=== PATIENT | male | born 1995 | race Caucasian/White ===

== ENCOUNTER 2018-10-19 16:16 | Emergency (ER) | payer MEDICAID ==
[2018-10-19] MEDS ORDERED: LET GEL TOPICAL 1 EA SYR TP ONE (17:16)
--- NOTE | 2018-10-19 17:26 | EDPHY ---
General Time Seen by Provider: 10/19/18 16:59 Narrative: CLINICAL IMPRESSION: Blisters to Feet, Diarrhea, illicit drug abuse ASSESSMENT/PLAN: 23 yo homeless male with a hx of meth abuse presents to the ED with blisters to his heels from walking around town with poor footwear. He also complains of non-bloody diarrhea without associated nausea, vomiting, fever/chills, flank pain, dysuria, or anorexia. Abdomen is soft and without peritoneal findings, low suspicion of acute surgical abdomen or severe dehydration. His wounds are dirty and at higher risk of infection given his homeless situation and drug abuse. Wounds were anesthetized with local anesthetic, cleaned and dressed. A take home pack of Bactrim was given and a prescription provided. Encouraged f/ u at [facility] in case he needs help filling rx's. Warning signs return to ED sooner outlined and discharge DIFFERENTIAL DX: Differential includes but not limited to superficial blisters, secondary cellulitis, gastroenteritis, diarrhea from drug abuse. ED PROCEDURES: See lab and/or imaging results below Wound care provided by general technician ED COURSE: 5:00 p.m.: Patient seen assessed by myself. Plan for let, cleaning and dressing wounds, PCP referrals CHIEF COMPLAINT: Painful blisters on feet, diarrhea HPI: 23-year-old homeless male presents to the emergency department with complaints of blisters on both feet. Patient reports he walks all day because if he tries to lay down and sleep he will get "carried off by the police". He reports he developed blisters on both feet from his shoes 3 days ago and they have been painful enough that he began using methamphetamine. He reports no bleeding from the wound, red streaks up the leg or swollen feet. He also reports falling asleep in the sun today and having a sunburn on his abdomen. Along with this he has had 2 days of nonbloody diarrhea. He has been eating twice daily, no vomiting, no fever or chills. No flank pain or UTI symptoms. PAST MEDICAL HISTORY: Illicit drug abuse See triage summary and nurse notes for addition applicable history Pertinent Past Surgical History: None reported Family History: Noncontributory Social History: Abuses illicit drugs, homeless, reports tetanus up-to-date REVIEW OF SYSTEMS: A full 10 point review of systems was negative except for those mentioned in HPI. PHYSICAL EXAM: General Appearance: Alert, oriented, dirty, unkept, lying comfortably in the bed, appears under the influence, NAD, non-toxic appearing, tachycardic, no hypoxia. HEENT: Oropharynx clear is no erythema or exudates, no tonsillar hypertrophy or asymmetry. Respiratory: There are no retractions, lungs are clear to auscultation. Cardiac: Tachycardic, regular rhythm, no murmurs or gallops.] Gastrointestinal: Abdomen is soft, nontender, bowel sounds normal, no masses/ hernia, no rigidity, guarding or focal peritoneal findings. Skin: First-degree sunburn to lower aspect of the abdomen. Crusted blisters to the inner aspects of both heels. No surrounding erythema, warmth, fluctuance, induration, lymphangitis or sign of deep space abscess, necrotizing fasciitis or osteomyelitis. MEDICAL DECISION MAKING: Patient was seen independently. Secondary supervising physician at time of evaluation was: Dr. Dunbar. Diagnosis: Blisters to feet, diarrhea. New, requires workup Summary: See Assessment and Plan for summary of ED visit Patient Progress: Stable for discharge. - History Smoking Status: Current every day smoker - Objective Vital Signs: Initial Vital Signs Temperature (C) 36.8 C 10/19/18 16:18 Heart Rate 119 H 10/19/18 16:18 Respiratory Rate 20 10/19/18 16:18 Blood Pressure 104/85 H 10/19/18 16:18 O2 Sat (%) 96 10/19/18 16:18 O2 Delivery Mode Room Air Allergies/Adverse Reactions: Cephalosporins Allergy (Verified 10/19/18 16:17) Home Medications: Medication Instructions Recorded Sulfamethox/Tmp 800/160 mg 1 tab PO BID #10 tab 10/19/18 [Bactrim Ds] Medications Given: Discontinued Medications Tetracaine/Epinephrine/Lidocaine (Let Gel Topical) 1 ea TP EDNOW ONE Stop: 10/19/18 17:17 Last Admin: 10/19/18 17:25 Dose: 1 ea Departure - Departure Disposition: Home, Routine, Self-Care Clinical Impression: Blisters of multiple sites Diarrhea Qualifiers: Diarrhea type: unspecified type Qualified Code(s): R19.7 - Diarrhea, unspecified Condition: Good Instructions: Gastroenteritis (ED), Blister (ED) Additional Instructions: DISCHARGE INSTRUCTIONS FROM YOUR DOCTOR Thank you for visiting our emergency department today. You were treated by a physician news assistant today and your case was reviewed with our ED Attending physician. Please keep in mind that discharge from the emergency department does not mean that there is nothing wrong - it simply means that we have not identified an emergency condition that requires further evaluation or treatment in the hospital. You should always plan to follow up with primary care for re- evaluation of your condition in the next 2-3 days. If you have been referred to a specialist, please call as soon as possible (today or tomorrow) to schedule your follow up appointment at the appropriate time. [ A TAKE-HOME PACK OF ANTIBIOTICS WAS GIVEN TO USE FOR POSSIBLE EARLY INFECTION OF YOUR BLISTERS. IT IS IMPORTANT FOR YOU TO STAY OFF OF YOUR FEET SO YOUR BLISTERS CAN HEAL. DRESSINGS WERE PLACED TONIGHT. LOOSE STOOLS MAY BE SECONDARY TO A VIRAL INFECTION. PLEASE STAY WELL-HYDRATED. YOU CAN CONSIDER TAKING IMODIUM [id number] IF NEEDED. [facility] WILL SEE PATIENTS WITH MEDICATED WE RECOMMEND THAT YOU CONTACT THEM FOR A FOLLOW-UP APPOINTMENT. RETURN TO THE ER FOR WORSENING PAIN, SWELLING OF THE FEET, DISCHARGE FROM THE WOUNDS, FEVERS INABILITY TO EAT OR DRINK, OR ANY OTHER CONCERNS. People present with illnesses and injuries in different ways, and it is always possible that we have missed something. You may always return for re-evaluation if symptoms worsen or if they are not improving or if you develop new/different symptoms. Again, thank you for choosing our emergency department. We hope that you feel better. Referrals: NONE *PRIMARY CARE P,. [Primary Care Provider] - As per Instructions [facility],. [Clinic] - 1-2 days without fail Prescriptions: Sulfamethox/Tmp 800/160 mg [Bactrim Ds] 1 tab PO BID #10 tab
[2018-10-19] MEDS ORDERED: SULFAMET/TMP DS PREPACK#2 BTL TAKEHOME ONE (17:29)
[2018-10-19 18:33] VITALS: BP 132/82
== END 2018-10-19 18:59 | disposition home or self-care (01) ==
DX: S90.821A Blister (nonthermal), right foot, initial encounter (principal); S90.822A Blister (nonthermal), left foot, initial encounter; R19.7 Diarrhea, unspecified; Z59.0 Homelessness

== ENCOUNTER 2018-12-09 20:31 | Emergency (ER) | payer MEDICAID | END 2018-12-09 22:17 | disposition home or self-care (01) | LOC: CED 20:31 ==